=== PATIENT | female | born 1990 | race Caucasian/White ===

== ENCOUNTER 2019-09-08 22:30 | Inpatient (IN) | payer MEDICAID, SELFPAY ==
[2019-09-08 23:27] VITALS: TEMP 36.2; O2SAT 98
[2019-09-08 23:28] VITALS: BP 142/95; PULSE 111
[2019-09-08] MEDS: Lactated Ringers 1,000 ML 50 ML IV (23:40)
[2019-09-08 23:41] VITALS: BMI 47.5
[2019-09-08] MEDS: Oxytocin 30 units/NS 500 ml 30 UNITS/500 ML IV.SOLN IV (23:45)
[2019-09-08 23:56] LABS: Absolute Neutrophil Count 4.8 X10^3/uL (2.0-7.7); Basophil# 0.01 X10^3/uL; Basophil% 0.1 % (0-1); Eosinophil# 0.04 X10^3/uL; Eosinophils% 0.5 % (0-5); Hematocrit 39.4 % (37-47); Hemoglobin 13.8 g/dL (12.0-15.0); Lymphocyte % 23.1 % (19-41); Mean Corpuscular Hgb 31.8 pg (27.0-32.0); Mean Corpuscular Volume 90.8 fL (81-99); Mean Platelet Vol. 11.9 fl (6.2-12.0); Monocyte# 0.77 X10^3/uL; Monocyte% 10.4 % (0-10); NRBC Flagged by Analyzer 0 % (0-5); Neutrophil # 4.84 X10^3/uL (2.7-7.7); Neutrophil % 65.8 % (47-70); Platelet Count 170 K/mm3 (150-450); RBC Distribution Width CV 12.6 % (11.6-14.6); RBC Distribution Width SD 40.6 fl (35.1-43.9); Red Blood Count 4.34 M/mm3 (4.2-5.4); White Blood Count 7.4 K/mm3 (4.4-11.0)
[2019-09-09] VITALS (71 sets, daily range): BP systolic 123–196; BP diastolic 59–98; PULSE 81–127; TEMP 36.3–38.3; O2SAT 77–100
[2019-09-09] MEDS: Lactated Ringers 500 ML 999 ML IV ×3 (00:01→15:55)
[2019-09-09 02:55] LABS: Prothrombin Time (Protime)PT. 13.2 SECONDS (11.7-14.9)
[2019-09-09 02:57] LABS: Partial Thromboplast Time 26.4 Seconds (24.1-36.2)
[2019-09-09 03:03] LABS: AST(SGOT) 40 U/L (15-37); Alanine Aminotransfer ALT/SGPT 14 U/L (13-56); Creatinine, Serum 0.88 mg/dL (0.55-1.02); EST Glomerular Filtration Rate 82 mL/min (>60); Est Glom Filt Rate - Afr Amer 99 mL/min (>60); Estimated Creatinine Clearance 100.36 ml/min; Uric Acid 5.1 mg/dL (2.6-6.0)
[2019-09-09 03:48] LABS: Protein:Creat Ratio 263 mg/g CRE (0-200)
[2019-09-09] MEDS: CLARIFY ORDER 1 EACH NOTE (04:17)
[2019-09-09 08:12] LABS: ROM Internal Control Test YES-OK TO RESULT pt. (Internal QC)
[2019-09-09 08:13] LABS: ROM Patient Test POSITIVE (Negative)
--- NOTE | 2019-09-09 08:47 | PCM.PN.BLA ---
Progress Note Patient is a at 40.0 weeks gestation here for induction of labor for obesity. Patient resting in room. Denies any pain with contractions at this time. S.R.O.M at 0730 for clear fluid. Difficulty tracing due to maternal size. Discussed internal monitors and patient agrees with plan of care. CE- 3/70/-2 IUPC and FSE placed without difficulty. Will continue to monitor. Anticipate . STROKE Vital Signs/Narrative: Vital Signs Temp Pulse BP Pulse Ox 09/09/19 08:39 99 169/98 H 09/09/19 07:20 96 134/86 H 09/09/19 06:39 96 127/74 H 97 09/09/19 06:38 97.4 F L 99 09/09/19 05:11 91 123/77 H 09/09/19 05:10 97.9 F 99
--- NOTE | 2019-09-09 08:53 | PCM.HP.OB ---
- Problem List (1) 40 weeks gestation of Status: Acute (2) Obesity affecting Status: Acute History Date of Admission: 09/08/19 Final MARCELA: 09/09/19 Final MARCELA Source: [place] <20 weeks Gestational age: 40 Weeks and 0 Days History of this : This is a 29 year-old, G1P), P) at 40 weeks gestational age. Induction of labor for Obesity and possible LGA. Medical History: Medical History (Last Updated 09/09/19 @ 08:59 by Sakina Jara CNM) Gestational thrombocytopenia (Acute) O99.119, D69.6 Anxiety (Acute) F41.9 Depression (Acute) F32.9 Obesity (Acute) E66.9 Late care (Acute) O09.30 Tonsillectomy planned Allergies No Known Allergies Allergy (Verified 09/08/19 23:43) Home Medications: Home Medications Famotidine [Pepcid] 20 mg PO BID 09/08/19 Smoking Status: Never smoker Alcohol: None NST - FHR Rate Baby A Baseline: 125 Variability:: Moderate Accelerations:: 15 x 15 Decelerations:: None NST Reactive:: Yes FHR Category:: Category I Uterine Activity:: 2-5 minutes/palpate mild and relaxed in between History Past Pregnancies: Past Pregnancies Delivery Date Name GA/ Weeks Outcome Route Wt Sex Labor Length Anesthesia Delivery Location Provider FOB Review of Systems Constitutional: Denies: Chills, Fever Eyes: Denies: Blurred vision, Double vision Cardiovascular: Denies: Chest Pain, Light Headedness Respiratory: Denies: Cough, Shortness of Breath Gastrointestinal: Denies: Abdominal Pain Physical Exam Vitals: Vital Signs Temp Pulse BP Pulse Ox 97.4 F L 99 169/98 H 97 09/09/19 06:38 09/09/19 08:39 09/09/19 08:39 09/09/19 06:39 General: Alert, Oriented x3, Cooperative, No apparent distress Lungs: Normal air movement Abdomen: Non Tender, Gravid, Obese Extremities:: No edema Neurological: Cranial nerves II-XII grossly intact, Deep Tendon Reflexes 2+/4 and 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 Induction of labor for obesity and possible LGA infant. Admit to L&D Start Pitocin and titrate as needed S.R.O.M at [address] internal monitors due to difficulty tracing due to maternal size Anticipate A+ Rubella-Immune HB- GBS- GC/C-
[2019-09-09] MEDS: Ondansetron 4 MG/2 ML Vial IV (09:18)
[2019-09-09] MEDS: fentaNYL-bupivacaine (epidural) 100 ML BAG EPIDURAL ×2 (11:25→17:07)
[2019-09-09] MEDS: Lactated Ringers 1,000 ML 200 ML IV ×2 (12:30→19:17)
--- NOTE | 2019-09-09 14:11 | PCM.PN.BLA ---
Progress Note Patient received epidural. Denies any pain at this time. CE completed by nursing and was 6/-2. Tracing Cat. 1. Pitocin at 16mu/min. Will continue to monitor. Anticipate . STROKE Vital Signs/Narrative: Vital Signs Temp Pulse BP Pulse Ox 09/09/19 14:09 102 H 133/62 H 09/09/19 12:58 103 H 153/70 H 99 09/09/19 12:28 98.2 F 86 128/62 H 09/09/19 11:54 81 123/59 H 09/09/19 11:53 98 09/09/19 11:49 88 129/63 H 09/09/19 11:48 93 99 09/09/19 11:44 98 146/82 H 09/09/19 11:43 98.0 F 98 99 09/09/19 11:39 100 143/83 H 09/09/19 11:38 103 H 98 09/09/19 11:34 101 H 143/85 H 09/09/19 11:33 99 09/09/19 11:30 97.9 F 110 H 139/84 H 09/09/19 11:29 92 09/09/19 11:28 81 98 09/09/19 11:24 100 153/84 H 09/09/19 11:23 96 98 09/09/19 11:19 99 153/87 H 09/09/19 11:18 111 H 99 09/09/19 11:15 95 147/77 H 09/09/19 11:13 100 96 09/09/19 11:09 94 166/61 H 09/09/19 11:08 100 09/09/19 11:05 82 173/75 H 09/09/19 11:03 96 99 09/09/19 10:31 85 124/71 H
--- NOTE | 2019-09-09 16:55 | PCM.PN.BLA ---
Progress Note FHT with moderate variability with early, late, and variable decelerations. Pitocin stopped at 1600. Assessed patient at bedside. CE/ 10/100/0. Did some practice pushing while patient on left side. Minimal movement with pushing. O2 10L via face mask applied. Decision made to place patient in high captains position and allow to labor down at this time. Will continue to monitor closely. Anticipate . Dr. Sandoval updated and agrees with plan of care. STROKE Vital Signs/Narrative: Vital Signs Temp Pulse BP Pulse Ox 09/09/19 16:00 113 H 147/81 H 09/09/19 15:59 98.2 F 112 H 172/84 H 100 09/09/19 15:22 93 141/69 H 09/09/19 15:13 98.2 F 112 H 196/82 H 99 09/09/19 14:09 97.9 F 102 H 133/62 H 100 09/09/19 12:58 103 H 153/70 H 99
[2019-09-09] MEDS: Oxytocin 30 units/NS 500 ml 30 UNITS/500 ML IV.SOLN 334 UNITS IV (20:15)
[2019-09-09] MEDS: HYDROmorphone 1 MG/ML Syringe IV (20:44)
--- NOTE | 2019-09-09 20:56 | PCM.OPRPT ---
<Sakina Jara - Last Filed: 09/09/19 20:56> Problem List (1) 40 weeks gestation of Status: Acute (2) Obesity affecting Status: Acute Report of Operation Date of Procedure: 09/09/19 Pre-Operative Diagnosis: Term gestation Post-Operative Diagnosis: Same, live female Surgery/Procedure Performed:: Spontaneous Vaginal Delivery Description of Surgical Findings:: Patient progressed to full dilation and pushed well with contractions. of live female born without complications. Good maternal pushing efforts delivered head. Gentle downward traction with delivery of posterior shoulder followed by the rest of 's body. Infant placed on maternal abdomen for immediate skin to skin. Delayed cord clamping preformed. Placenta delivered shortly after without difficulty and was intact. Second-degree vaginal laceration repaired with 3-0 rapad suture. Type of Anesthesia:: Epidural Vaginal Delivery Maternal Presentation: Medically Indicated Induction Method of Induction: Pitocin Medical Reason for Induction: - - BMI- 47 Amniotic Membrane Rupture Type: Spontaneous Amniotic Fluid Description: Clear Final MARCELA: 09/09/19 Gestational age: 40 Weeks and 0 Days Date of Procedure: 09/09/19 Pre-Operative Diagnosis: labor Post-Operative Diagnosis: labor Surgery/ Procedure Performed: Spontaneous Vaginal Delivery Type of Anesthesia: Epidural, Local with 1% lidocaine - 30 cc Description of Procedure: Patient progressed to full dilation and pushed well with contractions. of live female born without complications. Good maternal pushing efforts delivered head. Gentle downward traction with delivery of posterior shoulder followed by the rest of infant's body. placed on maternal abdomen for immediate skin to skin. Delayed cord clamping preformed. Placenta delivered shortly after without difficulty and was intact. Second-degree vaginal laceration repaired with 3-0 rapide suture. Presentation: Vertex, JIMMIE Placental Delivery Description: Spontaneous Placenta Disposition: [facility] Cord Vessel Description: 3 Vessels Cord Entanglement: None Drain: Lainez to straight drain Estimated Blood Loss: 500 A gender: Female - Matta (1 minute): 9 (5 minute): 9 Episiotomy Description: None Laceration: 2nd degree Medications given after delivery: IV Pitocin Complications: None <Cora Sandoval - Last Filed: 09/09/19 21:26> Vaginal Delivery Description of Procedure: I was present during the delivery, and assisted with the repair. Agree with above. Complications: None
[2019-09-09] MEDS: 0.9% Saline Lock 10 ML Syringe IV (22:46)
[2019-09-10] VITALS (11 sets, daily range): BP systolic 125–132; BP diastolic 59–75; PULSE 86–112; RESP 16–18; TEMP 36.4–37.2; O2SAT 98–99
[2019-09-10] MEDS: Ibuprofen 600 MG Tablet PO ×3 (03:44→21:22)
--- NOTE | 2019-09-10 06:39 | PCM.PN.BLA ---
Progress Note Patient sleeping at this time. No issues to report. without difficulty. Lochia minimal. Keeping ice to perineum and taking Motrin for pain relief. A/P PP Day 1 Routine care Pain management. STROKE Vital Signs/Narrative: Vital Signs Temp Pulse Resp BP BP 09/10/19 03:26 99 F 110 H 16 131/67 H 131/67 H
[2019-09-11 01:41] VITALS: BP 124/68; PULSE 107
[2019-09-11 01:43] VITALS: BP 124/68; PULSE 107; RESP 18; TEMP 36.6
[2019-09-11 07:34] VITALS: BP 129/70; PULSE 99; RESP 16; TEMP 36.3; O2SAT 98
[2019-09-11] MEDS: Acetaminophen 500 MG Tablet 1000 MG PO (07:36)
--- NOTE | 2019-09-11 08:18 | DCINST_ITS ---
Discharge Diet: No Restrictions Discharge Activity: Return to Normal Activity, May not drive while taking narcotic pain medications., May Shower May resume sexual activity in: 4-6 weeks Additional Activity Instructions:: Nothing in the vagina for 4-6 weeks. You may return to work/school in 6 weeks. Call your doctor if your incision/area has: Continuous Slow Oozing, Sudden Increased Bleeding, Increased Pain/ Swelling, Increased Redness, Foul Smelling Discharge Additional Instructions: If you experience any of the following, contact your healthcare provider. * Bleeding that soaks a pad every hour for 2 hours * Fever 100.4 or higher * Unrelieved incision or abdominal pain * Swelling, redness, discharge or bleeding from your incision or episiotomy site * Your incision begins to separate * Problems urinating (including inability to urinate or burning while urinating). * Visual changes * Severe headache * Flu-like symptoms * Pain or redness in one of both of your breasts * Pain, warmth, tenderness or swelling in your legs, especially the calf area * Frequent nausea and vomiting * Symptoms of depression or anxiety If you experience any of the following, call 911 or go to the nearest Emergency Room. * Chest pain * Problems breathing * Seizure activity * Partial or complete paralysis of a body part, slurred speech, weakness or drooping of the face, or a sudden inability to walk or hold your balance Allergies/Adverse Reactions: Allergies No Known Allergies Allergy (Verified 09/08/19 23:43) Please Follow Up With: Cora Sandoval MD - [phone] When: Call to make an appointment with your doctor in 6 weeks. If you had elevated Blood Pressure or 4th degree laceration you will need to be seen in 2 weeks. Primary Care Physician: Care Physician,No Primary [Primary Care Provider] - Test Results: Test results from this visit will be discussed in further detail at your follow- up appointment, if applicable.
--- NOTE | 2019-09-11 08:18 | PCM.DCVAG ---
Discharge Diet: No Restrictions Discharge Activity: Return to Normal Activity, May not drive while taking narcotic pain medications., May Shower May resume sexual activity in: 4-6 weeks Additional Activity Instructions:: Nothing in the vagina for 4-6 weeks. You may return to work/school in 6 weeks. Call your doctor if your incision/area has: Continuous Slow Oozing, Sudden Increased Bleeding, Increased Pain/ Swelling, Increased Redness, Foul Smelling Discharge Additional Instructions: If you experience any of the following, contact your healthcare provider. Bleeding that soaks a pad every hour for 2 hours Fever 100.4 or higher Unrelieved incision or abdominal pain Swelling, redness, discharge or bleeding from your incision or episiotomy site Your incision begins to separate Problems urinating (including inability to urinate or burning while urinating). Visual changes Severe headache Flu-like symptoms Pain or redness in one of both of your breasts Pain, warmth, tenderness or swelling in your legs, especially the calf area Frequent nausea and vomiting Symptoms of depression or anxiety If you experience any of the following, call 911 or go to the nearest Emergency Room. Chest pain Problems breathing Seizure activity Partial or complete paralysis of a body part, slurred speech, weakness or drooping of the face, or a sudden inability to walk or hold your balance Allergies/Adverse Reactions: Allergies No Known Allergies Allergy (Verified 09/08/19 23:43) Please Follow Up With: Cora Sandoval MD - [phone] When: Call to make an appointment with your doctor in 6 weeks. If you had elevated Blood Pressure or 4th degree laceration you will need to be seen in 2 weeks. Primary Care Physician: Care Physician,No Primary [Primary Care Provider] - Test Results: Test results from this visit will be discussed in further detail at your follow-up appointment, if applicable.
--- NOTE | 2019-09-11 08:19 | PCM.PN.OB ---
Patient Problems: Active and Suspected Problems (Last Updated 09/09/19 @ 08:59 by Sakina Jara CNM) 40 weeks gestation of (Acute) Obesity affecting (Acute) Gestational thrombocytopenia (Acute) Anxiety (Acute) Depression (Acute) Obesity (Acute) Late care (Acute) Subjective: pain well controlled, average lochia - Physical Exam Vitals/I&O's: Vital Signs Temp Pulse Resp BP Pulse Ox 97.4 F L 99 16 129/70 H 98 09/11/19 07:34 09/11/19 07:34 09/11/19 07:34 09/11/19 07:34 09/11/19 07:34 Oxygen Delivery Method Room Air Weight: 145.8 kg Body Mass Index (BMI) 47.5 Intake and Output for Last 24 Hours 09/09/19 09/10/19 09/11/19 23:59 23:59 23:59 Intake Total 5978.03 / 5978.03 Output Total 2550 / 2550 500 / 500 Balance 3428.03 / 3428.03 -500 / -500 General: Alert, Cooperative, No apparent distress Current Medications Acetaminophen (Tylenol) 1,000 mg PO Q8H PRN PRN PRN Reason: Pain Score 1-3/10 Last Admin: 09/11/19 07:36 Dose: 1,000 mg Documented by: Bisacodyl (Dulcolax) 10 mg RECTAL UD PRN PRN Reason: If no BM Dibucaine (Dibucaine) 1 applic TOPICAL TID PRN PRN; Protocol PRN Reason: Discomfort Hydrocortisone (Hytone) 1 applic TOPICAL TID PRN PRN; Protocol PRN Reason: Discomfort Ibuprofen (Motrin) 600 mg PO Q6H PRN PRN PRN Reason: Pain Score 1-3/10 Last Admin: 09/10/19 21:22 Dose: 600 mg Documented by: Methylergonovine Maleate (Methergine) 0.2 mg IM X1 PRN PRN Reason: Excess bleeding/uterine atony Ondansetron HCl (Zofran) 4 mg IV Q4H PRN PRN PRN Reason: Nausea Senna/Docusate Sodium (Senokot-S, Chel-Colace) 1 - 2 tablet PO DAILY PRN PRN PRN Reason: Constipation Simethicone (Mylicon) 80 mg PO PCHS PRN PRN Reason: Indigestion/Stomach pain Sodium Chloride () 5 - 15 ml IV UD PRN PRN Reason: SALINE FLUSH Last Admin: 09/09/19 22:46 Dose: 10 ml Documented by: Medical Necessity - Tobacco Use Smoking Status: Never smoker Assessment/Plan All Active Problems (Last Updated 09/09/19 @ 08:59 by Sakina Jara CNM) 40 weeks gestation of (Acute) Obesity affecting (Acute) Gestational thrombocytopenia (Acute) Anxiety (Acute) Depression (Acute) Obesity (Acute) Late care (Acute) PPD#2 doing well routine care ready for d/c
[2019-09-11] MEDS: Ibuprofen 600 MG Tablet PO (09:30)
== END 2019-09-11 10:30 | disposition home or self-care (01) | DRG 560 ==
PROVIDERS: Admitting Provider Obstetrics & Gynecology; Visit Provider Obstetrics & Gynecology
DX: O99.214 Obesity complicating childbirth (principal); Z37.0 Single live birth; Z3A.40 40 weeks gestation of pregnancy; E66.9 Obesity, unspecified; O76 Abnormality in fetal heart rate and rhythm complicating labor and delivery; O70.1 Second degree perineal laceration during delivery
CPT/HCPCS: 59025; 59050; 82565; 82570; 84112; 84156; 84450; 84460; 84550; 85025; 85610; 85730; 86850; 86900; 86901; 99218; J7120; A4216; G0378; J2405